=== PATIENT | female | born 1985 | race Two or more races ===

== ENCOUNTER 2024-07-29 06:40 | Day surgery (SDC) | payer OTHER ==
[2024-07-28 13:08] LABS: HEMATOCRIT 34.4 % (36.0-45.00); HEMOGLOBIN 11.7 g/dL (12.0-15.00); MEAN CELL VOLUME 85.1 fL (80.00-100.00); MEAN CORPUSCULAR HGB CONC 34.1 g/dl (32.0-36.0); PLATELET COUNT 243 K/uL (150-450); RED BLOOD COUNT 4.04 M/uL (4.00-6.00); RED CELL DISTRIBUTION WIDTH 15.8 % (11.5-14.5)
[2024-07-28 13:32] LABS: PROTHROMBIN TIME 10.9 SECONDS (9.0-11.5)
[2024-07-28 14:18] LABS: ALBUMIN 4.1 gm/dL (3.4-5.0); BILIRUBIN TOTAL 0.54 mg/dL (0.3-1.2); CALCIUM 9.6 mg/dL (8.5-10.1); CREATININE SERUM 0.55 mg/dL (0.55-1.02); GFR 125.06; GLOBULINA 3.8 G/DL (2.4-3.5); POTASSIUM 3.94 mEq/L (3.5-5.1); TOTAL PROTEIN 7.9 gm/dL (6.4-8.2)
[2024-07-29] MEDS ORDERED: PROMETHAZINE HCL 50 MG/ML AMPUL IM ONE (10:00)
[2024-07-29] MEDS ORDERED: MORPHINE SULFATE 4 MG/ML VIAL IV PRN (10:00)
[2024-07-29] MEDS ORDERED: CEFAZOLIN SODIUM 1,000 MG VIAL IV ONE (10:30)
== END 2024-07-29 13:40 | disposition home or self-care (01) ==
LOC: CIR.AMB 06:40
PROVIDERS: ATTEND Obstetrics & Gynecology
DX: O02.1 Missed abortion (principal)

== ENCOUNTER 2025-06-23 14:59 | Emergency (ER) | payer OTHER ==
[~2025-06-23] VITALS: Ht 160 cm; Wt 52.2 kg
[2025-06-23 15:32] VITALS: BP 113/80; O2SAT 100
[2025-06-23 16:58] LABS: BASO % 0.2 % (0.1-1.2); EOS # 0.08 (0.04-0.54); EOS % 0.5 % (0.7-7.0); LYMPH # 1.43 (1.18-3.74); LYMPH % 8.6 % (19.3-53.1); MEAN PLATELET VOLUME 10.60 fl (9.4-12.4); MONO # 0.65 (0.24-0.82); MONO % 3.9 % (4.7-12.5); NEUT # 14.42 (1.56-6.13); NEUT % 86.4 % (34.0-71.1); RED CELL DISTRIBUTION WIDTH 13.9 % (11.6-14.4)
[2025-06-23] MEDS ORDERED: ACETAMINOPHEN 325 MG TABLET PO ONE (17:15)
[2025-06-23] MEDS ORDERED: ACETAMINOPHEN 500 MG GEL..CAP PO ONE (18:05)
[2025-06-23] MEDS ORDERED: AMOX1TAB5 PO (18:32)
[2025-06-23] MEDS ORDERED: PEPCID AC20 MG PO (18:32)
[2025-06-23] MEDS ORDERED: ZOFRAN8 MG PO (18:32)
== END 2025-06-23 19:28 | disposition home or self-care (01) ==
LOC: ER 14:59
PROVIDERS: General Practice
DX: O20.8 Other hemorrhage in early pregnancy (principal); Z3A.01 Less than 8 weeks gestation of pregnancy